=== PATIENT | female | born 1950 | race Caucasian/White ===

== ENCOUNTER 2017-03-13 09:13 | Emergency (ER) | payer OTHER ==
[~2017-03-13] VITALS: Ht 154.9 cm; Wt 83.0 kg
[~2017-03-13 09:13] MED LIST: AMOX875T20 PO; HYDR-3580 PO
[2017-03-13 09:19] VITALS: BP 192/90; PULSE 68; RESP 16; TEMP 97.7; O2SAT 96
[2017-03-13] MEDS ORDERED: MELO-1 PO (09:35)
[2017-03-13] MEDS ORDERED: LISI10TA3 PO (09:35)
[2017-03-13] MEDS ORDERED: PARO12.5CR PO (09:35)
[2017-03-13] MEDS ORDERED: traMADol HCL 50 MG TAB PO ONE (09:45)
[2017-03-13] MEDS ORDERED: ORPHENADRINE INJ 60 MG/2 ML AMP IM ONE (09:45)
--- NOTE | 2017-03-13 09:46 | PD ---
HPI Chief Complaint: Fall Time Seen by Provider: 09:27 Travel History International Travel<30 days: No Contact w/Intl Traveler<30days: No Traveled to known affect area: No History of Present Illness HPI PATIENT STATES THAT SHE FELL YESTERDAY, SLIP AND FALL IN HER KITCHEN, APPARENTLY LANDED ON TAILBONE AND LEFT SHOULDER AND HEAD BUMPED AGAINST CABINETS (NO LOC, ON NO "BLOOD THINNERS"). AND NOW HER HEAD/NECK, LEFT SHOULDER , RIGHT ANKLE AND TAIL BONE HURT...SHARP PAIN, 12/12 CONGLOMERATELY.... PFSH Past Medical History Hx Anticoagulant Therapy: No Past Surgical History Section: Yes Oral Surgery: Yes (teeth extraction) Social History Alcohol Use: No Tobacco Use: No Substance Use: No Allergies-Medications (Allergen,Severity, Reaction): Coded Allergies: erythromycin base (Unverified Allergy, Severe, itching , 03/13/17) Reported Meds & Prescriptions Reported Meds & Active Scripts Active Reported Meloxicam 15 Mg Tab 15 Mg PO DAILY Paxil CR (Paroxetine HCl) 12.5 Mg Tab 15 Mg PO DAILY Lisinopril 10 Mg Tab 10 Mg PO DAILY Review of Systems Except as stated in HPI: all other systems reviewed are Neg Musculoskeletal: Positive: Pain Physical Exam Narrative GENERAL: SKIN: Warm and dry. HEAD: Atraumatic. Normocephalic. EYES: Pupils equal and round. No scleral icterus. No injection or drainage. ENT: No nasal bleeding or discharge. Mucous membranes pink and moist. NO HEMOTYMPANUM NECK: Trachea midline. No JVD. TTP ALONG LEFT POST SCM/SUPRASPINATUS/DELTOID AREA WITHOUT LACERATION, TTP AT COCCYX TIP, ALSO TTP TO RIGHT ANKLE WELL. CARDIOVASCULAR: Regular rate and rhythm. RESPIRATORY: No accessory muscle use. Clear to auscultation. Breath sounds equal bilaterally. GASTROINTESTINAL: Abdomen soft, non-tender, nondistended. MUSCULOSKELETAL: Extremities without clubbing, cyanosis, or edema. No obvious deformities. NEUROLOGICAL: Awake and alert. No obvious cranial nerve deficits. Motor grossly within normal limits. Five out of 5 muscle strength in the arms and legs. Normal speech. PSYCHIATRIC: Appropriate mood and affect; insight and judgment normal. Data Data Last Documented VS Vital Signs Date Time Temp Pulse Resp B/P (MAP) Pulse Ox O2 Delivery O2 Flow Rate FiO2 03/13/17 09:19 97.7 68 16 192/90 (124) [address] Brain W/O Iv Contrast(Rout) (03/13/17 09:34) Ct Cerv Spine W/O Contrast (03/13/17 09:34) Shoulder, Complete (>2vws) (03/13/17 ) Sacrum And Coccyx (03/13/17 ) Ankle, Limited (Ap&Lat) (03/13/17 ) Orphenadrine Inj (Norflex Inj) (03/13/17 09:45) Tramadol (Ultram) (03/13/17 09:45) MDM Medical Decision Making Medical Screen Exam Complete: Yes Emergency Medical Condition: Yes Medical Record Reviewed: Yes Differential Diagnosis FX V DISLOCATION V CONTUSION V SPRAIN V STRAIN Narrative Course REVIEW OF ALL CT AND XRAYS WERE NEG FOR FX, DISLOCATION, ALSO NO ICH NOTED EITHER Diagnosis Primary Impression: Sprain of cervical neck Qualified Codes: S13.9XXA - Sprain of joints and ligaments of unspecified parts of neck, initial encounter Additional Impressions: COCCYGEAL CONTUSION Contusion of scalp, initial encounter Patient Instructions: Cervical Neck Strain Exercises (GEN), Coccyx Injury (DC) , General Instructions, Scalp Contusion in Adults (ED) Scripts Tramadol (Ultram) 50 Mg Tab 50 MG PO Q6H Y for PAIN, #20 TAB 0 Refills Prov: Jesús Burton MD 03/13/17 Baclofen (Baclofen) 10 Mg Tab 10 MG PO Q8HR, #21 TAB 0 Refills Prov: Jesús Burton MD 03/13/17 Disposition: 01 DISCHARGE HOME Condition: Stable Jesús Burton MD Mar 13, 2017 09:46
--- NOTE | 2017-03-13 10:04 | RADRPT ---
EXAM DATE/TIME: 03/13/2017 09:44 [facility] COMPARISON: No previous studies available for comparison. INDICATIONS : Fell and hit back of head. RADIATION DOSE: 62.21 CTDIvol (mGy) MEDICAL HISTORY : None SURGICAL HISTORY : section. ENCOUNTER: Initial ACUITY: 1 day PAIN SCALE: 5/10 LOCATION: cranial TECHNIQUE: Multiple contiguous axial images were obtained of the head. Using automated exposure control and adj ustment of the mA and/or kV according to patient size, radiation dose was kept as low as reasonably a chievable to obtain optimal diagnostic quality images. DICOM format image data is available electro nically for review and comparison. FINDINGS: CEREBRUM: The ventricles are normal for age. No evidence of midline shift, mass lesion, hemorrhage or acute in farction. No extra-axial fluid collections are seen. POSTERIOR FOSSA: The cerebellum and brainstem are intact. The 4th ventricle is midline. The cerebellopontine angle i s unremarkable. EXTRACRANIAL: The visualized portion of the orbits is intact. SKULL: The calvaria is intact. No evidence of skull fracture. CONCLUSION: Negative for an acute process. Chaz Rodriguez MD FACR on March 13, 2017 at 10:02 Board Certified Radiologist. This report was verified electronically.
--- NOTE | 2017-03-13 10:15 | RADRPT ---
EXAM DATE/TIME: 03/13/2017 09:44 [facility] COMPARISON: No previous studies available for comparison. INDICATIONS : Fell and hit back of head. Left sided neck pain radiating down left shoulder. RADIATION DOSE: 26.05 CTDIvol (mGy) MEDICAL HISTORY : None SURGICAL HISTORY : section. ENCOUNTER: Initial ACUITY: 1 day PAIN SCALE: 5/10 LOCATION: Left neck TECHNIQUE: Volumetric scanning of the cervical spine was performed. Multiplanar reconstructions in the sagittal, coronal and oblique axial planes were performed. Using automated exposure control and adjustment o f the mA and/or kV according to patient size, radiation dose was kept as low as reasonably achievable to obtain optimal diagnostic quality images. DICOM format image data is available electronically f or review and comparison. FINDINGS: VERTEBRAE: Normal vertebral body height. Multilevel degenerative changes. ALIGNMENT: No evidence of subluxation. C2-C3: The bony spinal canal is normal in size. No evidence of disc bulge or herniation. The neural forami na are bilaterally patent. C3-C4: The bony spinal canal is normal in size. No evidence of disc bulge or herniation. The neural forami na are bilaterally patent. C4-C5: The bony spinal canal is normal in size. No evidence of disc bulge or herniation. The neural forami na are bilaterally patent. C5-C6: The bony spinal canal is normal in size. No evidence of disc bulge or herniation. The neural forami na are bilaterally patent. C6-C7: The bony spinal canal is normal in size. No evidence of disc bulge or herniation. The neural forami na are bilaterally patent. C7-T1: The bony spinal canal is normal in size. No evidence of disc bulge or herniation. The neural forami na are bilaterally patent. CONCLUSION: 1. No fracture or subluxation. Ernie Choudhury MD on March 13, 2017 at 10:13 Board Certified Radiologist. This report was verified electronically.
--- NOTE | 2017-03-13 10:51 | RADRPT ---
EXAM DATE/TIME: 03/13/2017 09:56 [facility] COMPARISON: No previous studies available for comparison. INDICATIONS : Slipped and fell complains of pain in low back MEDICAL HISTORY : None. SURGICAL HISTORY : None. ENCOUNTER: Initial ACUITY: 1 day PAIN SCORE: 6/10 LOCATION: Bilateral pelvis FINDINGS: Two-view examination of the sacrum and coccyx demonstrates no evidence of fracture or malalignment. The sacral ala and foramina appear symmetric and intact. The coccyx appears unremarkable. The preve rtebral soft tissues are within normal limits. CONCLUSION: Negative for fracture Chaz Rodriguez MD FACR on March 13, 2017 at 10:49 Board Certified Radiologist. This report was verified electronically.
--- NOTE | 2017-03-13 10:51 | RADRPT ---
EXAM DATE/TIME: 03/13/2017 09:56 [facility] COMPARISON: No previous studies available for comparison. INDICATIONS : Slipped and fell Complains of pain left shoulder MEDICAL HISTORY : None. SURGICAL HISTORY : None. ENCOUNTER: Initial ACUITY: 1 day PAIN SCORE: 6/10 LOCATION: Left Shoulder FINDINGS: Multiple view examination of the left shoulder demonstrates no evidence of fracture or dislocation. The glenohumeral and acromioclavicular joints are maintained. There is normal range of motion betwee n internal and external rotation. Bony mineralization is normal. CONCLUSION: Negative for fracture. Chaz Rodriguez MD FACR on March 13, 2017 at 10:49 Board Certified Radiologist. This report was verified electronically.
--- NOTE | 2017-03-13 10:52 | RADRPT ---
EXAM DATE/TIME: 03/13/2017 09:56 [facility] COMPARISON: No previous studies available for comparison. INDICATIONS : Right ankle pain post fall MEDICAL HISTORY : None. SURGICAL HISTORY : None. ENCOUNTER: Initial ACUITY: 1 day PAIN SCORE: 6/10 LOCATION: Right ankle FINDINGS: Two view examination was performed of the right ankle. The bony structures are in normal alignment. No evidence of fracture, dislocation, or soft tissue swelling. No radiopaque foreign bodies are see n. Bony mineralization is normal. CONCLUSION: Negative for fracture Chaz Rodriguez MD FACR on March 13, 2017 at 10:50 Board Certified Radiologist. This report was verified electronically.
[2017-03-13] MEDS ORDERED: ULTR50TA5 PO (11:28)
[2017-03-13] MEDS ORDERED: BACL10TA PO (11:28)
[2017-03-13 11:39] VITALS: RESP 16
[2017-03-13 11:46] VITALS: BP 148/76
== END 2017-03-13 11:48 | disposition home or self-care (01) ==
LOC: PHED 09:13
DX: S13.9XXA Sprain of joints and ligaments of unspecified parts of neck, initial encounter (principal); S00.03XA Contusion of scalp, initial encounter; S40.012A Contusion of left shoulder, initial encounter; S30.0XXA Contusion of lower back and pelvis, initial encounter; W01.190A Fall on same level from slipping, tripping and stumbling with subsequent striking against furniture, initial encounter; Y92.010 Kitchen of single-family (private) house as the place of occurrence of the external cause
CPT/HCPCS: 70450; 72125; 72220; 73030; 73600; 96372; 99284; J2360